=== PATIENT | female | born 1965 | race Hispanic/Latino ===

== ENCOUNTER 2018-05-15 14:19 | Emergency (ER) | END 2018-05-15 14:24 | disposition left against medical advice (07) | LOC: FSED 14:19 | DX: K12.2 Cellulitis and abscess of mouth (principal) ==

== ENCOUNTER 2020-11-07 12:26 | Emergency (ER) | payer SELFPAY ==
[~2020-11-07] VITALS: Ht 157.5 cm; Wt 111.1 kg
[2020-11-07] MEDS ORDERED: HYDRALAZINE HCL 20 MG/ML VIAL IV ONE (13:00)
[2020-11-07 13:16] LABS: BASOPHILS % 0.5 % (0.0-1.0); EOSINOPHILS # (AUTO) 0.2 (0.0-0.4); EOSINOPHILS % 2.3 % (0.0-6.0); HEMATOCRIT 39.3 % (34.2-44.1); HEMOGLOBIN 12.2 g/dL (12.0-16.0); LYMPHOCYTES # (AUTO) 1.8 (1.0-3.2); LYMPHOCYTES % 22.8 % (18.0-39.1); MEAN CORPUSCULAR HEMOGLOBIN 28.3 pg (28-32); MEAN CORPUSCULAR VOLUME 91.2 fL (81-99); MONOCYTES # (AUTO) 0.6 (0.2-0.8); MONOCYTES % 6.9 % (4.4-11.3); NEUTROPHILS # (AUTO) 5.4 (2.1-6.9); NEUTROPHILS % 67.2 % (38.7-80.0); PLATELET COUNT 255 x10e3/uL (140-360); RED BLOOD COUNT 4.31 x10e6/uL (3.6-5.1); RED CELL DISTRIBUTION WIDTH 13.7 % (11.7-14.4)
[2020-11-07 13:35] LABS: ALANINE AMINOTRANSFERASE 32 IU/L (0-55); ALBUMIN 3.6 g/dL (3.5-5.0); ALBUMIN/GLOBULIN RATIO 1.1 (0.8-2.0); ALKALINE PHOSPHATASE 101 IU/L (40-150); BLOOD UREA NITROGEN 11 mg/dL (7-26); BUN/CREATININE RATIO 14 (6-25); CALCIUM 8.9 mg/dL (8.4-10.2); CARBON DIOXIDE 26 mmol/L (22-29); CHLORIDE 106 mmol/L (98-107); CREATINE KINASE 124 IU/L (29-168); CREATININE, SERUM 0.77 mg/dL (0.57-1.11); EST GLOMERULAR FILTRATION RATE > 60 ML/MIN (60-); GLUCOSE 103 mg/dL (74-118); SODIUM 141 mmol/L (136-145)
[2020-11-07] MEDS ORDERED: HYDROCHLOROTHIA25 MG PO (14:03)
[2020-11-07] MEDS ORDERED: LASIX40 MG PO (14:11)
[2020-11-07] MEDS ORDERED: FUROSEMIDE INJ 10 MG/ML 4 ML VIAL IV NR (14:15)
[2020-11-07 14:26] VITALS: BP 146/78
== END 2020-11-07 14:27 | disposition home or self-care (01) ==
LOC: ER 13:00
DX: R07.9 Chest pain, unspecified (principal); R06.02 Shortness of breath; I10 Essential (primary) hypertension
CPT/HCPCS: 36415; 71045; 80053; 82550; 82553; 83880; 84484; 85025; 93005; 99284